=== PATIENT | male | born 1970 | race Caucasian/White ===

== ENCOUNTER 2024-03-30 11:43 | Emergency (ER) | payer MEDICARE, SELFPAY ==
[2024-03-30 11:55] VITALS: BP 138/98
[2024-03-30 12:21] LABS: % Basophils 0.7 % (0-2); % Immature Granulocytes 0.7 % (0-0.5); % Lymphocytes 43.1 % (20.5-51.1); % Monocytes 8.7 % (1.7-9.3); % Neutrophils 45.8 % (42.2-75.2); Absolute Basophils 0.1 10^3/uL (0-0.2); Absolute Eosinophils 0.1 10^3/uL (0-0.7); Absolute Immature Granulocytes 0.1 10^3/uL (0-0.05); Absolute Lymphocytes 4.7 10^3/uL (1.2-3.4); Hematocrit 48.1 % (39.0-52.0); Hemoglobin 16.6 g/dL (13.0-18.0); Mean Corp Hgb Conc. 34.5 g/dL (33.0-37.0); Mean Corpuscular Volume 86.8 fL (80.0-94.0); Mean Platelet Volume 9.3 fL (7.4-10.4); Nucleated Red Blood Cells % 0 % (-); Platelet Count 257 10^3/uL (130-400); Red Blood Cell Count 5.54 10^6/uL (4.70-6.10); Red Cell Dist. Width 13.5 % (11.5-14.5)
[2024-03-30 12:29] LABS: INR 0.98; PT 12.8 Sec (11.4-14.6)
[2024-03-30 12:30] LABS: APTT 23.6 Sec (23.4-35.0); COVID-19 Antigen Negative (Negative)
[2024-03-30 12:44] LABS: ALT (SGPT) 31 U/L (0-50); AST (SGOT) 29 U/L (17-59); Albumin 4.8 g/dl (3.5-5.0); Alkaline Phosphatase 40 U/L (38-126); Blood Urea Nitrogen 13 mg/dl (9-20); Calcium 9.8 mg/dl (8.4-10.2); Carbon Dioxide 22 mmol/L (22-30); Chloride 102 mmol/L (98-107); Glucose 99 mg/dl (70-99); Potassium 4.6 mmol/L (3.5-5.1); Sodium 137 mmol/L (135-145); Total Bilirubin 0.5 mg/dl (0.2-1.3); Total Protein 7.5 g/dl (6.3-8.2); eGFR > 60.00
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
[2024-03-30 15:50] LABS: Urine Albumin Negative (Neg - Trace); Urine Bilirubin Negative (Negative); Urine Character Clear (Clear); Urine Color Yellow; Urine Glucose Negative (Negative); Urine Ketone Negative (Negative); Urine Leukocyte Trace (Negative); Urine Nitrite Negative (Negative); Urine Occult Blood Negative (Negative); Urine Urobilinogen Negative (Neg - 1+)
[2024-03-30 15:57] VITALS: BP 133/97
[2024-03-30 15:59] LABS: Hepatitis B Surface Antigen Negative (Negative)
[2024-03-30 16:17] LABS: Hepatitis B Core Ab, Total Negative (Negative); Hepatitis B Surface Antibody Negative; Hepatitis C Antibody Negative (Negative)
[2024-03-30 16:19] LABS: HIV Combo Negative (Negative)
[2024-03-30 16:29] LABS: Urine Mucus Many; Urine Red Blood Cell 0-2 /HPF (0-2); Urine Squamous Cell 0-2 /LPF (Few); Urine White Cell 0-2 /HPF (0-5)
[2024-03-30 16:30] LABS: Urine Bacteria Few (Negative)
[2024-04-01 20:25] LABS: Lead - Venous <2.0 ug/dL (<=4.9); Mercury, Blood <2.5 ug/L (<=10.0)
== END 2024-03-30 16:20 | disposition home or self-care (01) ==
LOC: EMR 11:43
PROVIDERS: Emergency Medicine; EMERGENCY PHYSICIAN Emergency Medicine
DX: M54.10 Radiculopathy, site unspecified (principal); R53.83 Other fatigue; R53.1 Weakness; F31.9 Bipolar disorder, unspecified; F17.200 Nicotine dependence, unspecified, uncomplicated; Z82.49 Family history of ischemic heart disease and other diseases of the circulatory system; Z59.00 Homelessness unspecified
CPT/HCPCS: 99283; 71046; 72050; 80053; 81003; 81015; 83655; 83825; 85025; 85610; 85730; 86704; 86706; 86803; 87340; 87389; 87502; 87811